=== PATIENT | female | born 1970 | race Caucasian/White ===

== ENCOUNTER 2020-07-17 09:30 | Emergency (ER) | payer BC ==
--- OUTSIDE RECORDS SUMMARY | 2020-07-17 09:41 | XMS REPORT | Clinical Summary ---
:1970 Author Organization [facility] Address [address] [place] [address] Care Team Providers Name Role Phone Asked, No Pcp Primary Care Provider Unavailable Allergies Active Allergy Reactions Severity Noted Date Comments Metoclopramide Hcl Unknown Reaction 03/12/2020 Oxcarbazepine Unknown Reaction 03/12/2020 Medications Medication Sig Dispensed Refills Start Date End Date Status promethazine Take 1 tablet 12 tablet 0 03/12/2020 03/19/2020 E xpired (PHENERGAN) 25 MG (25 mg total) by tablet mouth every 6 (six) hours as needed for nausea or vomiting for up to 7 days. Active Problems Not on file Encounters Date Type Specialty Care Team Description 03/12/2020 Emergency Emergency Medicine Faraz Harmon Mig raine without status migrainosus, no t intractable, un specified migraine type ( Primary Dx) 03/12/2020 Travel after 07/17/2019 Surgical History Surgery Date Site/Laterality Comments PALATE SURGERY ADENOIDECTOMY HYSTERECTOMY THORACOTOMY Medical History Medical History Date Comments Migraine Cancer (HCC) breast cancer High cholesterol Social History Tobacco Use Types Packs/Day Years Used Date Never Smoker Smokeless Tobacco: Never Used Alcohol Use Drinks/Week oz/Week Comments Never Alcohol Habits Answer Date Recorded How often do you have a drink containing alcohol? Never 03/12/2020 How many drinks containing alcohol do you have on a typical Not asked day when you are drinking? How often do you have six or more drinks on one occasion? No t asked Sex Assigned at Date Recorded Not on file Last Filed Vital Signs Vital Sign Reading Time Taken Comments Blood Pressure 123/83 03/12/2020 7:10 PM CDT Pulse 94 03/12/2020 7:10 PM CDT Temperature 36.5 C (97.7 F) 03/12/2020 7:10 PM CDT Respiratory Rate 20 03/12/2020 7:10 PM CDT Oxygen Saturation 97% 03/12/2020 7:10 PM CDT Inhaled Oxygen Concentration - - Weight - - Height 172.7 cm (5' 8") 03/12/2020 4:13 PM CDT Body Mass Index - - Plan of Treatment Not on file Procedures Procedure Name Priority Date/Time Associated Comments Diagnosis ESTIMATED GFR STAT 03/12/2020 5:09 Results fo r this PM CDT procedure are i n the results section. COMPREHENSIVE STAT 03/12/2020 5:09 Results fo r this METABOLIC PANEL PM CDT procedure ar e in the results section. HC COMPLETE BLD COUNT STAT 03/12/2020 5:09 Re sults for this W/AUTO DIFF PM CDT procedure are i n the results section. after 07/17/2019 Results Estimated GFR (03/12/2020 5:09 PM CDT) Estimated GFR 89 mL/min/1.73 [facility] Comment: m2 [place] Catergory Units Interpretation [facility] G1 >=90 Normal or high G2 60-89 Mildly decreased G3a 45-59 Mildly to moderately decreas ed G3b 30-44 Moderately to severely decre ased G4 15-29 Severely decreased G5 <15 Kidney failure The eGFR was calculated using the Chronic Kidney Disea se Epidemiology Collaboration (CKD-EPI) equation. Interpretation is based on recommendations of the National Kidney Foundation-Kidney Disease Outcomes Bryn lity Initiative (NKF-KDOQI) published in 2014. Specimen Performing Organization Address City/State/ZIP Code Phon e Number [facility] DEPARTMENT OF PATHOLOGY [address] [facility] [address] AND GENOMIC MEDICINE [facility] [id number] [facility] [place] [address] [facility] CBC with platelet and differential (03/12/2020 5:09 PM CDT) Pathologist Sig nature WBC 8.5 4.5 - 11.0 k/uL [facility] RBC 4.83 4.20 - 5.50 m/uL [facility] HGB 14.3 12.0 - 16.0 g/dL [facility] HCT 44.0 37.0 - 47.0 % [facility] MCV 91.1 82.0 - 100.[address] [facility] MCH 29.6 27.0 - 34.[address] [facility] MCHC 32.5 31.0 - 37.0 g/dL [facility] RDW - SD 42.9 37.0 - 55.[address] [facility] MPV 10.8 6.9 - 11.[address] [facility] Platelet count 274 150 - 400 K/uL [facility] Nucleated RBC 0.00 /[address] [facility] Neutrophils 60.9 39.0 - 69.0 % [facility] Lymphocytes 27.6 25.0 - 45.0 % [facility] Monocytes 9.4 0.0 - 10.0 % [facility] Eosinophils 1.3 0.0 - 5.0 % [facility] Basophils 0.4 0.0 - 1.0 % [facility] Immature granulocytes 0.4 0.0 - 1.0 % [facility] Specimen Blood Performing Organization Address City/State/ZIP Code Phon e Number [facility] DEPARTMENT OF PATHOLOGY [id number] [facility] X [address] AND GENOMIC MEDICINE [facility] [address] [facility] X [phone] [place] [address] Comprehensive metabolic panel (03/12/2020 5:09 PM CDT) Pathologist [facility] nature Sodium 135 135 - 148 mEq/L [facility] Potassium 3.4 (L) 3.5 - 5.0 mEq/L [facility] Chloride 94 (L) 98 - 112 mEq/L [facility] CO2 28 24 - 31 mEq/L [facility] Anion gap 13@ANIO 7 - 15 mEq/L [facility] BUN 18 6 - 20 mg/dL [facility] Creatinine 0.78 0.50 - 0.90 [facility]/dL [facility] Glucose 149 (H) 65 - 99 mg/dL [facility] Calcium 9.9 8.3 - 10.2 mg/dL [facility] Protein 8.1 6.3 - 8.3 g/dL [facility] Albumin 4.4 3.5 - 5.0 g/dL [facility] A/G ratio 1.2 0.7 - 3.8 [facility] Alkaline phosphatase 137 (H) 35 - 104 U/L [facility] AST 50 (H) 10 - 35 U/L [facility] ALT 53 (H) 5 - 50 U/L [facility] Total bilirubin 0.4 0.2 - 1.2 mg/dL [facility] Specimen Blood Performing Organization Address City/State/ZIP Code Phon e Number [facility] DEPARTMENT OF PATHOLOGY [address] [facility] [place] [address] AND GENOMIC MEDICINE [facility] [address] [facility] [address] HOSPITAL after 07/17/2019 Advance Directives For more information, please contact: [phone] Type Date Recorded Patient Robotics Technician Explanati on Advance Directives, Living Will 03/12/2020 5:30 PM and Medical Power of Food Cooking Machine Operator
--- OUTSIDE RECORDS SUMMARY | 2020-07-17 09:41 | XMS REPORT | Continuity of Care Document ---
:1970 Author Organization [facility] t Address [address] [place] [address] Care Team Providers Name Role Phone Asked, Pcp Primary Care Physician Unavailable Annette Harmon MD. Attending Clinician Payers Payer Name Policy Type Policy Effective Date Expiration Date Sour ce Number [id number] CHOICE [id number] 2019 [place] PPO/FEDERAL 00:00:00 [facility] EMPL [id number] 2019-Presen tPPO Problems This patient has no known problems. Allergies, Adverse Reactions, Alerts Allergy Allergy Status Severity Reaction(s) Onset Inactive Treating Comm ents Source Name Type Date Date Clinician Metoclop Propensi Active Unknown [place] ramide ty to Reaction 9-16 [facility] Hcl adverse 00:00: st reaction 00 s to drug Oxcarbaz Propensi Active Unknown [place] on epine ty to Reaction 03-12 [facility] adverse 00:00: st reaction 00 s to drug Reglan Allergy Active Moderate Anaphylaxis [place] [facility] to to severe da substanc [facility] SHELLFIS Allergy Active Moderate Anaphylaxis [place] to to severe da DERIVED substanc Medical e Group Trilepta Allergy Active Moderate Anaphylaxis [place] l to da substanc [facility] Social History Social Habit Start Date Stop Date Quantity Comments Source History [facility] Meth odist Alcohol Std Drinks History [facility] Alcohol Binge Sex Assigned At [facility] ethodist Tobacco use and 2020-03-12 2020-03-12 Never used [facility] ethodist exposure 00:00:00 00:00:00 Alcohol intake 2020-03-12 2020-03-[address] [facility] thodist 00:00:00 00:00:00 non-drinker (finding) History [facility] 2020-03-12 2020-03-12 1 [place] [facility] Alcohol Frequency 00:00:00 00:00:00 Smoking Status Start Date Stop Date Source Never smoker [place] Method[facility] t Medications Ordered Filled Start Stop Current Ordering Indication Dosage Frequency Signature Comments Components Source Medication Medication Date Date Medication? Clinician (SIG) Name Name promethazin 2020- No 25mg Q6H Take 1 Malachi ston e 03-12 tablet (25 [facility] (PHENERGAN) 00:00: 23:59 mg total) st 25 MG 00 :00 by mouth tablet every 6 (six) hours as needed for nausea or vomiting for up to 7 days. tizanidine tizanidine No 1 tizanidine [place] 2 mg tablet 2 mg tablet 5-18 2 mg d a Take 1 Take 1 00:00: tablet Medical tablet as tablet as 00 Take 1 Sameer up needed by needed by tablet as oral route. oral route. needed by oral route. aripiprazol aripiprazol No aripiprazo [place] e 2 mg e 2 mg le 2 mg da tablet Take tablet Take tablet Medical 1 tablet(s) 1 tablet(s) Take 1 Group every day every day tablet(s) by oral by oral every day route. route. by oral route. atenolol 25 atenolol 25 No atenolol [place] mg tablet mg tablet 25 mg da Take 1 Take 1 tablet Medical tablet tablet Take 1 Group every day every day tablet by oral by oral every day route. route. by oral route. atorvastati atorvastati No 1 Q1D atorvastat [place] n 10 mg n 10 mg in 10 mg da tablet Take tablet Take tablet Medical 1 tablet 1 tablet Take 1 Group every day every day tablet by oral by oral every day route. route. by oral route. dihydroergo dihydroergo No dihydroerg [place] tamine 0.5 tamine 0.5 otamine da mg/pump mg/pump 0.5 Medical act. (4 act. (4 mg/pump Group mg/mL) mg/mL) act. (4 nasal spray nasal spray mg/mL) Take 1 Take 1 nasal spray as spray as spray Take needed by needed by 1 spray as nasal nasal needed by route. route. nasal route. diltiazem diltiazem No 1capsul Q1D diltiazem [place] CD 120 mg CD 120 mg e(s) CD 120 mg da capsule,ext capsule,ext capsule,ex Medical ended ended tended Group release 24 release 24 release 24 hr Take 1 hr Take 1 hr Take 1 capsule capsule capsule every day every day every day by oral by oral by oral route. route. route. duloxetine duloxetine No duloxetine [place] 30 mg 30 mg 30 mg da capsule,del capsule,del capsule,de Medical ayed ayed layed Group release release release Take 1 Take 1 Take 1 capsule capsule capsule every day every day every day by oral by oral by oral route. route. route. duloxetine duloxetine No duloxetine [place] 60 mg 60 mg 60 mg da capsule,del capsule,del capsule,de Medical ayed ayed layed Group release release release Take 1 Take 1 Take 1 capsule capsule capsule every day every day every day by oral by oral by oral route. route. route. Emgality Emgality No Emgality [facility] Pen 120 Pen 120 Pen 120 da mg/mL mg/mL mg/mL Medical subcutaneou subcutaneou subcutaneo Group s pen s pen us pen injector injector injector Femara Femara No Femara [facility] gabapentin gabapentin No 1capsul TID gabapentin [place] 100 mg 100 mg e(s) 100 mg da capsule capsule capsule Medica l Take 1 Take 1 Take 1 Group capsule 3 capsule 3 capsule 3 times a day times a day times a by oral by oral day by route. route. oral route. hydrochloro hydrochloro No hydrochlor [facility] thiazide 25 thiazide 25 othiazide da mg tablet mg tablet 25 mg Medi frank Take 1 Take 1 tablet Group tablet tablet Take 1 every day every day tablet by oral by oral every day route. route. by oral route. hydroxychlo hydroxychlo No hydroxychl [place] roquine 200 roquine 200 oroquine da mg tablet 1 mg tablet 1 200 mg Medical tab po qd tab po qd tablet 1 G roup tab po qd Januvia 100 Januvia 100 No Januvia [place] mg tablet mg tablet 100 mg da Take 1 Take 1 tablet Medical tablet tablet Take 1 Group every day every day tablet by oral by oral every day route. route. by oral route. letrozole letrozole No letrozole [place] 2.5 mg 2.5 mg 2.5 mg da tablet 1 tablet 1 tablet 1 Med ical tab po qd tab po qd tab po qd Group omeprazole omeprazole No 1capsul Q1D omeprazole [place] 40 mg 40 mg e(s) 40 mg da capsule,del capsule,del capsule,de Medical ayed ayed layed Group release release release Take 1 Take 1 Take 1 capsule capsule capsule every day every day every day by oral by oral by oral route. route. route. Immunizations Ordered Immunization Filled Immunization Date Status Commen ts Source Name Name influenza, influenza, 2020-03-19 Completed [facility] inject[facility], injectable, 00:00:00 [facility] p quadrivalent quadrivalent influenza, influenza, 2019-03-30 Completed [facility] injectable, injectable, 00:00:00 [facility] p quadrivalent quadrivalent Tdap Tdap 2019-03-01 Completed [facility] 00:00:00 [facility] Vital Signs Vital Name Observation Time Observation Value Comments Source Height 2020-05-30 00:00:00 68 [in_i] [facility] BMI (Body Mass 2020-05-30 00:00:00 37[facility]4 [facility] Body Weight 2020-05-30 00:00:00 3936 [oz_av] [facility] Height 2020-05-16 00:00:00 68 [in_i] [facility] BMI (Body Mass 2020-05-16 00:00:00 39.4 kg[facility] Body Weight 2020-05-16 00:00:00 4144 [oz_av] [facility] BP Diastolic 2020-04-02 00:00:00 89 mm[Hg] [facility] Height 2020-04-02 00:00:00 68 [in_i] [facility] BMI (Body Mass 2020-04-02 00:00:00 39.4 kg/m2 [facility] Medical Index) Group BP Systolic 2020-04-02 00:00:00 119 mm[Hg] [facility] Body Weight 2020-04-02 00:00:00 4144 [oz_av] [facility] Height 2020-03-05 00:00:00 68 [in_i] [facility] BMI (Body Mass 2020-03-05 00:00:00 38.6 kg/m2 [facility] retirement officer Medical Index) Group Body Weight 2020-03-05 00:00:00 4064 [oz_av] [facility] BP Diastolic 2019-12-24 00:00:00 90 mm[Hg] [facility] Height 2019-12-24 00:00:00 68 [in_i] [facility] BMI (Body Mass 2019-12-24 00:00:00 38.6 kg/m2 [facility] Index) Group BP Systolic 2019-12-24 00:00:00 126 mm[Hg] [facility] Body Weight 2019-12-24 00:00:00 4064 [oz_av] [facility] BP Diastolic 2019-08-06 00:00:00 88 mm[Hg] [facility] Height 2019-08-06 00:00:00 68 [in_i] [facility] BMI (Body Mass 2019-08-06 00:00:00 38.8 kg/m2 [facility] retirement officer Medical Index) Group BP Systolic 2019-08-06 00:00:00 128 mm[Hg] [facility] Body Weight 2019-08-06 00:00:00 4080 [oz_av] [facility] Systolic blood 2020-03-12 19:10:00 123 mm[Hg] Umairto n [facility] pressure Diastolic blood 2020-03-12 19:10:00 83 mm[Hg] Umairt on [facility] pressure Heart rate 2020-03-12 19:10:00 94 /min Joaquin Steel Body temperature 2020-03-12 19:10:00 36.5 Cristina Umair rodriguez [facility] Respiratory rate 2020-03-12 19:10:00 20 /min U[facility] Steel Oxygen saturation in 2020-03-12 19:10:00 97 /min Joaquin Steel Arterial blood by Pulse oximetry Body height 2020-03-12 16:13:00 172.7 cm Joaquin Steel Procedures Procedure Date / Time Performing Clinician Source Performed HC COMPLETE BLD COUNT 2020-03-12 17:09:00 Jennifer Harmon W/AUTO DIFF COMPREHENSIVE METABOLIC 2020-03-12 17:09:00 Jennifer Harmonton [facility] PANEL ESTIMATED GFR 2020-03-12 17:09:00 Jennifer Harmon [facility] Colonoscopy 2019-07-11 00:00:00 [facility] Hysterectomy 2018-05-29 00:00:00 [facility] Breast Surgery 2017-07-28 00:00:00 [facility] Plan of Care Planned Activity Planned Date Details Comments Source Instructions [facility] Encounters Start End Encounter Admission Attending Care Care Encounter Source Date/Time Date/Time Type Type Clinicians Facility Department ID 2020-05-30 2020-05-30 Moira [facility] [place] - [id number] [facility] 00:00:00 00:00:00 Rox Connors, Medical Medical FURNACE INSTALLER: [address] [facility] [address], [place] [address] , Ph. 2020-05-16 2020-05-16 Moira [facility] [place] - [id number] [facility] 00:00:00 00:00:00 Rox Connors Medical Medical FURNACE INSTALLER: [address] [facility] [address] [facility] [address], [place] [address] , Ph. 2020-04-02 2020-04-02 Nurys [facility] [place] - [id number] [facility] 00:00:00 00:00:00 Discovery israel Sanches FURNACE INSTALLER: [address] [place] [address], [place] [address] , Ph. 2020-03-12 2020-03-12 Emergency [facility] [id number] [place] 00:00:00 00:00:00 JENNIFER Simmons6 [facility] 2020-03-05 2020-03-05 [facility] [place] - [id number] [facility] 00:00:00 00:00:00 Discovery israel Sanches FURNACE INSTALLER: [address] [place] [address], [place] [address] , Ph. 2019-12-24 2019-12-24 [facility] [place] - [id number] [facility] 00:00:00 00:00:00 Discovery israel Sanches FURNACE INSTALLER: [address] [place] [address], [place] [address] , Ph. 2019-11-12 2019-11-12 [facility] [place] - [id number] [facility] 00:00:00 00:00:00 Discovery israel Sanches FURNACE INSTALLER: [address] [place] [address], [facility] [address] , Ph. 2019-10-29 2019-10-29 Moira [facility] [place] - [id number] [facility] 00:00:00 00:00:00 Rox Connors [facility] Medical FURNACE INSTALLER: [address] [place] [address], [place] [address] , Ph. 2019-08-06 2019-08-06 Nur[facility] [place] - [id number] [facility] 00:00:00 00:00:00 Discovery israel Sanches FURNACE INSTALLER: [address] [place] [address], [facility] [address] , Ph. Results Test Description Test Time Test Comments Results Result Comments Source rapid SARS CoV + SARS CoV 2 Ag, QL IA, respiratory specimen 2020-05-16 16:13:34 Test Item Value Reference Range Interpretation Comme nts SARS-CoV - 2 (test code = SARS-CoV - 2) [facility] Ag [Presence] in Respiratory specimen by Rapid [id number] 16:13:00 Test Item Value Reference Range Interpretation Comments SARS-CoV - 2 (test code = SARS-CoV - positive 2) [facility] W Auto Differential panel - [id number] 08:00:00 Test Item Value Reference Range Interpretation Comments white blood count (test code = 6.6 K/uL 4.0-11.5 white blood count) red blood count (test code = red 4.81 M/uL 3.80-5.20 blood count) hemoglobin (test code = 13.9 g/dL 10.5-15.7 hemoglobin) hematocrit (test code = 43.9 % 34.0-50.0 hematocrit) MCV [Entitic volume] (test code = 91.3 fL 86-100 26634-7) mean corpuscular hemoglobin (test 28.9 pg 26.2-33.4 code = mean corpuscular hemoglobin) mean corpuscular HGB conc (test 31.7 g/dL 30-34 code = mean corpuscular HGB conc) red cell distribution width (test 13.5 % 12.0-15.5 code = red cell distribution width) platelet count (test code = 250 K/uL 165-450 platelet count) mean platelet volume (test code = 11.0 fL 9.4-12.6 mean platelet volume) Segmented neutrophils/100 53.2 % 44.4-80.1 leukocytes in Blood (test code = 50962-8) Immature granulocytes [#/volume] 0.0 K/uL 0.0-0.03 in Blood (test code = 64710-6) lymphocyte% (test code = 35.1 % 10.0-50.0 lymphocyte%) mono % (test code = mono %) 9.4 % 3.6-12.0 eos % (test code = eos %) 1.5 % 0.0-5.4 Basophils/100 leukocytes in 0.5 % 0.1-1.2 Unspecified specimen (test code = 20563-4) Band form neutrophils [#/volume] 3.53 K/uL 1.56-6.13 in Blood (test code = 93852-2) Lymphocytes [#/volume] in 2.3 K/uL 1.18-3.74 Unspecified specimen by Automated count (test code = 29443-4) mono # (test code = mono #) 0.62 K/uL 0.24-0.86 eos # (test code = eos #) 0.10 K/uL 0.04-0.36 basophil # (test code = basophil 0.03 K/uL 0.01-0.08 #) NRBC% (test code = NRBC%) 0 /100 WBC 0-0.2 NRBC# (test code = NRBC#) 0 K/uL [facility], method unspecified - [id number] 08:00:00NeutrophilsBandLymphocyteAtypical LymphMonocyteEosinophilBasophilMetamyelocyteMyelocytePromyelocyteNucleated Red Blood CellPlatelet EstimatePlatelet MorphologyHypochromasiaGiant Platelets [facility] 2000 panel - Serum or Plasma 2020-05-08 08:00:00 Test Item Value Reference Range Interpretation Comments glucose (test code = glucose) 214 mg/dL 74-106 H Urea nitrogen [Mass/volume] in 12 mg/dL 6-20 Serum or Plasma (test code = 3094-0) osmolality calculated,serum (test 275 mOsm/kg 280-300 L code = osmolality calculated,serum) creatinine (test code = 0.8 mg/dL 0.50-0.90 creatinine) glomerular filtration rate (test >60.00 code = glomerular filtration rate) Urea nitrogen/Creatinine [Mass 15.0 12-20 Ratio] in Serum or Plasma (test code = 3097-3) sodium level (test code = sodium 134 mmol/L 135-145 L level) Potassium [Moles/volume] in Body 4.0 mmol/L 3.5-5.2 fluid (test code = 2821-7) chloride level (test code = 99 mmol/L 98-108 chloride level) CO2 (test code = CO2) 23 mmol/L 21-32 anion gap (test code = anion gap) 16.0 mEq/L 12-20 calcium level (test code = 9.6 mg/dL 8.6-10.0 calcium level) total protein (test code = total 7.3 g/dL 6.6-8.7 protein) albumin (test code = albumin) 4.1 g/dL 3.5-5.2 globulin (test code = globulin) 3.2 gm/dL A/G ratio (test code = A/G ratio) 1.3 >1.0 bilirubin,total (test code = 0.4 mg/dL 0.0-1.2 bilirubin,total) AST/SGOT (test code = AST/SGOT) 37 U/L 15-32 H Alanine aminotransferase 46 U/L 0-33 H [Enzymatic activity/volume] in Serum or Plasma (test code = 1742-6) Alkaline phosphatase [Enzymatic 122 U/L 35-105 H activity/volume] in Serum or Plasma (test code = 6768-6) [facility] W Auto Differential panel - [id number] 08:00:00 Test Item Value Reference Range Interpretation Comments white blood count (test code = 6.6 K/uL 4.0-11.5 white blood count) red blood count (test code = red 4.81 M/uL 3.80-5.20 blood count) hemoglobin (test code = 13.9 g/dL 10.5-15.7 hemoglobin) hematocrit (test code = 43.9 % 34.0-50.0 hematocrit) MCV [Entitic volume] (test code = 91.3 fL 86-100 60248-4) mean corpuscular hemoglobin (test 28.9 pg 26.2-33.4 code = mean corpuscular hemoglobin) mean corpuscular HGB conc (test 31.7 g/dL 30-34 code = mean corpuscular HGB conc) red cell distribution width (test 13.5 % 12.0-15.5 code = red cell distribution width) platelet count (test code = 250 K/uL 165-450 platelet count) mean platelet volume (test code = 11.0 fL 9.4-12.6 mean platelet volume) Segmented neutrophils/100 53.2 % 44.4-80.1 leukocytes in Blood (test code = 04843-8) Immature granulocytes [#/volume] 0.0 K/uL 0.0-0.03 in Blood (test code = 15184-1) lymphocyte% (test code = 35.1 % 10.0-50.0 lymphocyte%) mono % (test code = mono %) 9.4 % 3.6-12.0 eos % (test code = eos %) 1.5 % 0.0-5.4 Basophils/100 leukocytes in 0.5 % 0.1-1.2 Unspecified specimen (test code = 73706-4) Band form neutrophils [#/volume] 3.53 K/uL 1.56-6.13 in Blood (test code = 91346-0) Lymphocytes [#/volume] in 2.3 K/uL 1.18-3.74 Unspecified specimen by Automated count (test code = 68891-4) mono # (test code = mono #) 0.62 K/uL 0.24-0.86 eos # (test code = eos #) 0.10 K/uL 0.04-0.36 basophil # (test code = basophil 0.03 K/uL 0.01-0.08 #) NRBC% (test code = NRBC%) 0 /100 WBC 0-0.2 NRBC# (test code = NRBC#) 0 K/uL [facility], method unspecified - [id number] 08:00:00NeutrophilsBandLymphocyteAtypical LymphMonocyteEosinophilBasophilMetamyelocyteMyelocytePromyelocyteNucleated Red Blood CellPlatelet EstimatePlatelet MorphologyHypochromasiaGiant Platelets [facility] 2000 panel - Serum or Plasma 2020-05-08 08:00:00 Test Item Value Reference Range Interpretation Comments glucose (test code = glucose) 214 mg/dL 74-106 H Urea nitrogen [Mass/volume] in 12 mg/dL 6-20 Serum or Plasma (test code = 3094-0) osmolality calculated,serum (test 275 mOsm/kg 280-300 L code = osmolality calculated,serum) creatinine (test code = 0.8 mg/dL 0.50-0.90 creatinine) glomerular filtration rate (test >60.00 code = glomerular filtration rate) Urea nitrogen/Creatinine [Mass 15.0 12-20 Ratio] in Serum or Plasma (test code = 3097-3) sodium level (test code = sodium 134 mmol/L 135-145 L level) Potassium [Moles/volume] in Body 4.0 mmol/L 3.5-5.2 fluid (test code = 2821-7) chloride level (test code = 99 mmol/L 98-108 chloride level) CO2 (test code = CO2) 23 mmol/L 21-32 anion gap (test code = anion gap) 16.0 mEq/L 12-20 calcium level (test code = 9.6 mg/dL 8.6-10.0 calcium level) total protein (test code = total 7.3 g/dL 6.6-8.7 protein) albumin (test code = albumin) 4.1 g/dL 3.5-5.2 globulin (test code = globulin) 3.2 gm/dL A/G ratio (test code = A/G ratio) 1.3 >1.0 bilirubin,total (test code = 0.4 mg/dL 0.0-1.2 bilirubin,total) AST/SGOT (test code = AST/SGOT) 37 U/L 15-32 H Alanine aminotransferase 46 U/L 0-33 H [Enzymatic activity/volume] in Serum or Plasma (test code = 1742-6) Alkaline phosphatase [Enzymatic 122 U/L 35-105 H activity/volume] in Serum or Plasma (test code = 6768-6) [facility] [id number] 17:41:35 Test Item Value Reference Range Interpretation Comments Sodium (test code = 2951-2) 135 135- 148 mEq/L Potassium (test code = 2823-3) 3.4 3.5- 5.0 mEq/L L Chloride (test code = 2075-0) 94 98- 112 mEq/L L CO2 (test code = 2027-9) 28 24- 31 mEq/L Anion gap (test code = 22782-7) 13@ANIO 7- 15 mEq/L BUN (test code = 3094-0) 18 mg/dL 6-20 Creatinine (test code = 2160-0) 0.78 mg/dL 0.5-0.9 Glucose (test code = 2345-7) 149 mg/dL 65-99 H Calcium (test code = 67306-6) 9.9 mg/dL 8.3-10.2 Protein (test code = 2885-2) 8.1 g/dL 6.3-8.3 Albumin (test code = 1751-7) 4.4 g/dL 3.5-5 A/G ratio (test code = 1759-0) 1.2 0.7-3.8 Alkaline phosphatase (test code = 137 U/L 35-104 H 6768-6) AST (test code = 1920-8) 50 U/L 10-35 H ALT (test code = 1742-6) 53 U/L 5-50 H Total bilirubin (test code = 0.4 mg/dL 0.2-1.2 1974-07) Lab Interpretation (test code = Abnormal 23655-9) [facility] [id number] 17:41:35 Test Item Value Reference Range Interpretation Comments Estimated GFR (test 89 mL/min/1.73 m2 [facility] Units code = 5488) InterpretationG 1 >=90 Normal or highG2 60-89 Mildly [id number] 45-59 Mildly to mode rately [id number] 30-44 Moderately to severely decreasedG4 15-29 Severely decre asedG5 <15 Kidn ey failureThe eGFR was calculated marvin g the Chronic Kidney Disease Epidemiology Co llaboration (CKD-EPI) equat ion. Interpretation is based on recommendations of the National Kidney Foundation-Kidn ey Disease Outcomes Qualit y Initiative (NKF-KDOQI) pub lished in 2014. [facility] MethodistCBC with platelet and [id number] 17:26:05 Test Item Value Reference Range Interpretation Comments WBC (test code = 27481-6) 8.5 4.5- 11.0 k/uL RBC (test code = 92922-2) 4.83 m/uL 4.2-5.5 HGB (test code = 718-7) 14.3 g/dL 12-16 HCT (test code = 4544-3) 44.0 % 37-47 MCV (test code = 787-2) 91.1 fL 82-100 MCH (test code = 785-6) 29.6 pg 27-34 MCHC (test code = 786-4) 32.5 g/dL 31-37 RDW - SD (test code = 27853-3) 42.9 fL 37-55 MPV (test code = 92730-3) 10.8 fL 6.9-11 Platelet count (test code = 274 K/uL 150-400 28650-0) Nucleated RBC (test code = 97714-3) 0.00 /100 WBC Neutrophils (test code = 98247-0) 60.9 % 39-69 Lymphocytes (test code = 82013-6) 27.6 % 25-45 Monocytes (test code = 25187-5) 9.4 % 0-10 Eosinophils (test code = 10400-7) 1.3 % 0-5 Basophils (test code = 92763-1) 0.4 % 0-1 Immature granulocytes (test code = 0.4 % 0-1 89986-1) [facility] Auto Differential panel - [id number] 09:26:00 Test Item Value Reference Range Interpretation Comments white blood count (test code = 5.5 K/uL 4.0-11.5 white blood count) red blood count (test code = red 4.64 M/uL 3.80-5.20 blood count) hemoglobin (test code = 13.7 g/dL 10.5-15.7 hemoglobin) hematocrit (test code = 42.6 % 34.0-50.0 hematocrit) MCV [Entitic volume] (test code = 91.8 fL 86-100 13745-6) mean corpuscular hemoglobin (test 29.5 pg 26.2-33.4 code = mean corpuscular hemoglobin) mean corpuscular HGB conc (test 32.2 g/dL 30-34 code = mean corpuscular HGB conc) red cell distribution width (test 12.9 % 12.0-15.5 code = red cell distribution width) platelet count (test code = 222 K/uL 165-450 platelet count) mean platelet volume (test code = 9.9 fL 9.4-12.6 mean platelet volume) Segmented neutrophils/100 55.0 % 44.4-80.1 leukocytes in Blood (test code = 22579-0) Immature granulocytes [#/volume] 0.0 K/uL 0.0-0.03 in Blood (test code = 38953-6) lymphocyte% (test code = 32.7 % 10.0-50.0 lymphocyte%) mono % (test code = mono %) 9.9 % 3.6-12.0 eos % (test code = eos %) 1.6 % 0.0-5.4 Basophils/100 leukocytes in 0.4 % 0.1-1.2 Unspecified specimen (test code = 33197-2) Band form neutrophils [#/volume] 3.04 K/uL 1.56-6.13 in Blood (test code = 04840-6) Lymphocytes [#/volume] in 1.8 K/uL 1.18-3.74 Unspecified specimen by Automated count (test code = 18938-4) mono # (test code = mono #) 0.55 K/uL 0.24-0.86 eos # (test code = eos #) 0.09 K/uL 0.04-0.36 basophil # (test code = basophil 0.02 K/uL 0.01-0.08 #) NRBC% (test code = NRBC%) 0 /100 WBC 0-0.2 NRBC# (test code = NRBC#) 0 K/uL [facility], method unspecified - [id number] 09:26:00NeutrophilsBandLymphocyteAtypical LymphMonocyteEosinophilBasophilMetamyelocytePlatelet EstimatePlatelet MorphologyHypochromasiaAnisocytosisRouleauDifferential comment-[facility] RegionBasic metabolic 2000 panel - Serum or [id number] 09:26:00 Test Item Value Reference Range Interpretation Comments Glucose [Mass/volume] in Serum or 107 mg/dL 74-106 H Plasma (test code = 2345-7) Urea nitrogen [Mass/volume] in 12 mg/dL 6-20 Serum or Plasma (test code = 3094-0) osmolality calculated,serum (test 280 mOsm/kg 280-300 code = osmolality calculated,serum) creatinine (test code = 0.7 mg/dL 0.50-0.90 creatinine) glomerular filtration rate (test >60.00 code = glomerular filtration rate) Urea nitrogen/Creatinine [Mass 17.1 12-20 Ratio] in Serum or Plasma (test code = 3097-3) sodium level (test code = sodium 140 mmol/L 135-145 level) potassium level (test code = 4.0 mmol/L 3.5-5.2 potassium level) chloride level (test code = 103 mmol/L 98-108 chloride level) CO2 (test code = CO2) 28 mmol/L 21-32 anion gap (test code = anion gap) 13.0 mEq/L 12-20 calcium level (test code = 9.5 mg/dL 8.6-10.0 calcium level) [facility] HealthTroponisylvia I.cardiac [Mass/volume] in [id number] 09:26:00 Test Item Value Reference Range Interpretation Comments cardiac troponin I (test code = cardiac <0.30 0.0-0.5 troponin I) [facility] W Auto Differential panel - [id number] 09:26:00 Test Item Value Reference Range Interpretation Comments white blood count (test code = 5.5 K/uL 4.0-11.5 white blood count) red blood count (test code = red 4.64 M/uL 3.80-5.20 blood count) hemoglobin (test code = 13.7 g/dL 10.5-15.7 hemoglobin) hematocrit (test code = 42.6 % 34.0-50.0 hematocrit) MCV [Entitic volume] (test code = 91.8 fL 86-100 14252-8) mean corpuscular hemoglobin (test 29.5 pg 26.2-33.4 code = mean corpuscular hemoglobin) mean corpuscular HGB conc (test 32.2 g/dL 30-34 code = mean corpuscular HGB conc) red cell distribution width (test 12.9 % 12.0-15.5 code = red cell distribution width) platelet count (test code = 222 K/uL 165-450 platelet count) mean platelet volume (test code = 9.9 fL 9.4-12.6 mean platelet volume) Segmented neutrophils/100 55.0 % 44.4-80.1 leukocytes in Blood (test code = 61054-3) Immature granulocytes [#/volume] 0.0 K/uL 0.0-0.03 in Blood (test code = 48370-2) lymphocyte% (test code = 32.7 % 10.0-50.0 lymphocyte%) mono % (test code = mono %) 9.9 % 3.6-12.0 eos % (test code = eos %) 1.6 % 0.0-5.4 Basophils/100 leukocytes in 0.4 % 0.1-1.2 Unspecified specimen (test code = 77696-7) Band form neutrophils [#/volume] 3.04 K/uL 1.56-6.13 in Blood (test code = 18867-0) Lymphocytes [#/volume] in 1.8 K/uL 1.18-3.74 Unspecified specimen by Automated count (test code = 65010-5) mono # (test code = mono #) 0.55 K/uL 0.24-0.86 eos # (test code = eos #) 0.09 K/uL 0.04-0.36 basophil # (test code = basophil 0.02 K/uL 0.01-0.08 #) NRBC% (test code = NRBC%) 0 /100 WBC 0-0.2 NRBC# (test code = NRBC#) 0 K/uL [facility], method unspecified - [id number] 09:26:00NeutrophilsBandLymphocyteAtypical LymphMonocyteEosinophilBasophilMetamyelocytePlatelet EstimatePlatelet MorphologyHypochromasiaAnisocytosisRouleauDifferential comment-[facility]Basic metabolic 2000 panel - Serum or [id number] 09:26:00 Test Item Value Reference Range Interpretation Comments Glucose [Mass/volume] in Serum or 107 mg/dL 74-106 H Plasma (test code = 2345-7) Urea nitrogen [Mass/volume] in 12 mg/dL 6-20 Serum or Plasma (test code = 3094-0) osmolality calculated,serum (test 280 mOsm/kg 280-300 code = osmolality calculated,serum) creatinine (test code = 0.7 mg/dL 0.50-0.90 creatinine) glomerular filtration rate (test >60.00 code = glomerular filtration rate) Urea nitrogen/Creatinine [Mass 17.1 12-20 Ratio] in Serum or Plasma (test code = 3097-3) sodium level (test code = sodium 140 mmol/L 135-145 level) potassium level (test code = 4.0 mmol/L 3.5-5.2 potassium level) chloride level (test code = 103 mmol/L 98-108 chloride level) CO2 (test code = CO2) 28 mmol/L 21-32 anion gap (test code = anion gap) 13.0 mEq/L 12-20 calcium level (test code = 9.5 mg/dL 8.6-10.0 calcium level) [facility] I.cardiac [Mass/volume] in [id number] 09:26:00 Test Item Value Reference Range Interpretation Comments cardiac troponin I (test code = cardiac <0.30 0.0-0.5 troponin I) [facility] W Auto Differential panel - [id number] 07:24:00 Test Item Value Reference Range Interpretation Comments white blood count (test code = 8.3 K/uL 4.0-11.5 white blood count) red blood count (test code = red 4.33 M/uL 3.80-5.20 blood count) hemoglobin (test code = 12.7 g/dL 10.5-15.7 hemoglobin) hematocrit (test code = 40.1 % 34.0-50.0 hematocrit) MCV [Entitic volume] (test code = 92.6 fL 86-100 59515-8) mean corpuscular hemoglobin (test 29.3 pg 26.2-33.4 code = mean corpuscular hemoglobin) mean corpuscular HGB conc (test 31.7 g/dL 30-34 code = mean corpuscular HGB conc) red cell distribution width (test 13.7 % 12.0-15.5 code = red cell distribution width) platelet count (test code = 239 K/uL 165-450 platelet count) mean platelet volume (test code = 10.2 fL 9.4-12.6 mean platelet volume) Segmented neutrophils/100 56.1 % 44.4-80.1 leukocytes in Blood (test code = 99205-5) Immature granulocytes [#/volume] 0.0 K/uL 0.0-0.03 in Blood (test code = 35434-6) lymphocyte% (test code = 31.8 % 10.0-50.0 lymphocyte%) mono % (test code = mono %) 10.2 % 3.6-12.0 eos % (test code = eos %) 1.1 % 0.0-5.4 Basophils/100 leukocytes in 0.4 % 0.1-1.2 Unspecified specimen (test code = 27854-0) Band form neutrophils [#/volume] 4.67 K/uL 1.56-6.13 in Blood (test code = 95393-2) Lymphocytes [#/volume] in 2.6 K/uL 1.18-3.74 Unspecified specimen by Automated count (test code = 63222-3) mono # (test code = mono #) 0.85 K/uL 0.24-0.86 eos # (test code = eos #) 0.09 K/uL 0.04-0.36 basophil # (test code = basophil 0.03 K/uL 0.01-0.08 #) NRBC% (test code = NRBC%) 0 /100 WBC 0-0.2 NRBC# (test code = NRBC#) 0 K/uL [facility], method unspecified - [id number] 07:24:00NeutrophilsBandLymphocyteMonocyteEosinophilBasophilPlatelet Estimate [facility]Com[facility] 2000 panel - Serum or Plasma 2019-12-04 07:24:00 Test Item Value Reference Range Interpretation Comments glucose (test code = glucose) 113 mg/dL 74-106 H Urea nitrogen [Mass/volume] in 18 mg/dL 6-20 Serum or Plasma (test code = 3094-0) osmolality calculated,serum (test 284 mOsm/kg 280-300 code = osmolality calculated,serum) creatinine (test code = 0.7 mg/dL 0.50-0.90 creatinine) glomerular filtration rate (test >60.00 code = glomerular filtration rate) Urea nitrogen/Creatinine [Mass 25.7 12-20 H Ratio] in Serum or Plasma (test code = 3097-3) sodium level (test code = sodium 141 mmol/L 135-145 level) Potassium [Moles/volume] in Body 3.8 mmol/L 3.5-5.2 fluid (test code = 2821-7) chloride level (test code = 104 mmol/L 98-108 chloride level) CO2 (test code = CO2) 26 mmol/L 21-32 anion gap (test code = anion gap) 14.8 mEq/L 12-20 calcium level (test code = 9.4 mg/dL 8.6-10.0 calcium level) total protein (test code = total 7.1 g/dL 6.6-8.7 protein) albumin (test code = albumin) 3.9 g/dL 3.5-5.2 globulin (test code = globulin) 3.2 gm/dL A/G ratio (test code = A/G ratio) 1.2 >1.0 bilirubin,total (test code = 0.4 mg/dL 0.0-1.2 bilirubin,total) AST/SGOT (test code = AST/SGOT) 27 U/L 15-32 Alanine aminotransferase 36 U/L 0-33 H [Enzymatic activity/volume] in Serum or Plasma (test code = 1742-6) Alkaline phosphatase [Enzymatic 114 U/L 35-105 H activity/volume] in Serum or Plasma (test code = 6768-6) [facility] [Enzymatic activity/volume] in Serum or Plasma 2019-12-04 07:24:00 Test Item Value Reference Range Interpretation Comments lipase (test code = lipase) 34 U/L 13-60 [facility] W Auto Differential panel - [id number] 07:37:00 Test Item Value Reference Range Interpretation Comments white blood count (test code = 5.5 K/uL 4.0-11.5 white blood count) red blood count (test code = red 4.71 M/uL 3.80-5.20 blood count) hemoglobin (test code = 13.6 g/dL 10.5-15.7 hemoglobin) hematocrit (test code = 43.3 % 34.0-50.0 hematocrit) MCV [Entitic volume] (test code = 91.9 fL 86-100 99369-3) mean corpuscular hemoglobin (test 28.9 pg 26.2-33.4 code = mean corpuscular hemoglobin) mean corpuscular HGB conc (test 31.4 g/dL 30-34 code = mean corpuscular HGB conc) red cell distribution width (test 13.7 % 12.0-15.5 code = red cell distribution width) platelet count (test code = 251 K/uL 165-450 platelet count) mean platelet volume (test code = 10.0 fL 9.4-12.6 mean platelet volume) Segmented neutrophils/100 61.1 % 44.4-80.1 leukocytes in Blood (test code = 39201-3) Immature granulocytes [#/volume] 0.0 K/uL 0.0-0.03 in Blood (test code = 02724-6) lymphocyte% (test code = 29.0 % 10.0-50.0 lymphocyte%) mono % (test code = mono %) 6.8 % 3.6-12.0 eos % (test code = eos %) 2.2 % 0.0-5.4 Basophils/100 leukocytes in 0.7 % 0.1-1.2 Unspecified specimen (test code = 04077-9) Band form neutrophils [#/volume] 3.35 K/uL 1.56-6.13 in Blood (test code = 63312-3) Lymphocytes [#/volume] in 1.6 K/uL 1.18-3.74 Unspecified specimen by Automated count (test code = 24790-3) mono # (test code = mono #) 0.37 K/uL 0.24-0.86 eos # (test code = eos #) 0.12 K/uL 0.04-0.36 basophil # (test code = basophil 0.04 K/uL 0.01-0.08 #) NRBC% (test code = NRBC%) 0 /100 WBC 0-0.2 NRBC# (test code = NRBC#) 0 K/uL [facility] 2000 panel - Serum or Plasma 2019-11-25 07:37:00 Test Item Value Reference Range Interpretation Comments glucose (test code = glucose) 162 mg/dL 74-106 H Urea nitrogen [Mass/volume] in 18 mg/dL 6-20 Serum or Plasma (test code = 3094-0) osmolality calculated,serum (test 279 mOsm/kg 280-300 L code = osmolality calculated,serum) creatinine (test code = 0.7 mg/dL 0.50-0.90 creatinine) glomerular filtration rate (test >60.00 code = glomerular filtration rate) Urea nitrogen/Creatinine [Mass 25.7 12-20 H Ratio] in Serum or Plasma (test code = 3097-3) sodium level (test code = sodium 137 mmol/L 135-145 level) Potassium [Moles/volume] in Body 4.0 mmol/L 3.5-5.2 fluid (test code = 2821-7) chloride level (test code = 99 mmol/L 98-108 chloride level) CO2 (test code = CO2) 28 mmol/L 21-32 anion gap (test code = anion gap) 14.0 mEq/L 12-20 calcium level (test code = 9.9 mg/dL 8.6-10.0 calcium level) total protein (test code = total 7.5 g/dL 6.6-8.7 protein) albumin (test code = albumin) 4.2 g/dL 3.5-5.2 globulin (test code = globulin) 3.3 gm/dL A/G ratio (test code = A/G ratio) 1.3 >1.0 bilirubin,total (test code = 0.4 mg/dL 0.0-1.2 bilirubin,total) AST/SGOT (test code = AST/SGOT) 31 U/L 15-32 Alanine aminotransferase 42 U/L 0-33 H [Enzymatic activity/volume] in Serum or Plasma (test code = 1742-6) Alkaline phosphatase [Enzymatic 119 U/L 35-105 H activity/volume] in Serum or Plasma (test code = 6768-6) [facility]
[2020-07-17] MEDS ORDERED: LORazepam 2 MG/ML VIAL ONE (13:10)
[2020-07-17] MEDS ORDERED: DIPHENHYDRAMINE 50 MG/ML VIAL ONE (13:10)
[2020-07-17] MEDS ORDERED: dexAMETHasone 10 MG/ML VIAL ONE (13:10)
[2020-07-17] MEDS ORDERED: KETOROLAC 30 MG/ML INJ ONE (13:11)
[2020-07-17] MEDS ORDERED: PROMETHAZINE INJ 25 MG/ML AMP ONE (14:26)
[2020-07-17] MEDS ORDERED: SUMATRIPTAN SUCC 6MG/0.5ML VIAL SQ ONE (14:26)
--- NOTE | 2020-07-17 14:58 | ER ---
Nurse's Notes [facility] Name: Connie Ellsworth Age: 49 yrs Sex: Female : 1970 Arrival Date: 07/17/2020 Time: 09:35 Bed 26 [facility] MD: Diagnosis: Migraine, unspecified, intractable Presentation: 07/17 10:01 Chief complaint: Patient states: "migraine" that began last night. Coronavirus screen: ss Client denies travel out of the [place] in the last 14 days. Ebola Screen: Patient denies exposure to infectious person. Patient denies travel to an Ebola-affected area in the 21 days before illness onset. Initial Sepsis Screen: Does the patient meet any 2 criteria? No. Patient's initial sepsis screen is negative. Does the patient have a suspected source of infection? No. Patient's initial sepsis screen is negative. Risk Assessment: Do you want to hurt yourself or someone else? Patient reports no desire to harm self or others. Onset of symptoms was July 16, 2020. 10:01 Method Of Arrival: Ambulatory ss 10:01 Acuity: JAIME 3 ss Historical: - Allergies: 10:02 Trileptal; ss 10:02 Reglan; ss - Home Meds: 11:48 atorvastatin oral oral [Active]; Cymbalta oral oral [Active]; letrozole oral oral vg1 [Active]; - PMHx: 10:02 Migraines; Hypertension; High Cholesterol; ss 11:48 Breast Cancer; vg1 - Immunization history:: Adult Immunizations up to date. - Social history:: Smoking status: Patient denies any tobacco usage or history of. Screenin:48 Abuse screen: Denies threats or abuse. Nutritional screening: No deficits noted. vg1 Tuberculosis screening: No symptoms or risk factors identified. Fall Risk No fall in past 12 months (0 pts). No secondary diagnosis (0 pts). No IV (0 pts). Ambulatory Aid- None/Bed Rest/Nurse Assist (0 pts). Gait- Normal/Bed Rest/Wheelchair (0 pts) Mental Status- Oriented to own ability (0 pts). Total Nguyen Fall Scale indicates No Risk (0-24 pts). Assessment: 11:35 General: Appears in no apparent distress. uncomfortable, Behavior is calm, cooperative. vg1 Pain: Complains of pain in head Pain currently is 8 out of 10 on a pain scale. Pain began yesterday afternoon. Neuro: Level of Consciousness is awake, alert, obeys commands, Oriented to person, place, time, situation. Cardiovascular: Patient's skin is warm and dry. Respiratory: Airway is patent Respiratory effort is even, unlabored, Respiratory pattern is regular, symmetrical. GI: Reports nausea, vomiting. : No signs and/or symptoms were reported regarding the genitourinary system. EENT: No signs and/or symptoms were reported regarding the EENT system. Derm: Skin is intact, is healthy with good turgor. Musculoskeletal: Circulation, motion, and sensation intact. 13:13 Reassessment: Patient appears in no apparent distress at this time. Patient and/or vg1 family updated on plan of care and expected duration. Pain level reassessed. Patient is alert, oriented x 3, equal unlabored respirations, skin warm/dry/pink. Vital Signs: 10:01 Weight 113.4 kg; Height 5 ft. 8 in. (172.72 cm); ss 11:44 BP 125 / 96; Pulse 105; Resp 18; Pulse Ox 98% on R/A; vg1 12:00 BP 145 / 115; Pulse 105; Resp 18; Pulse Ox 99% on R/A; vg1 13:00 BP 120 / 92; Pulse 100; Resp 18; Pulse Ox 98% on R/A; vg1 14:00 BP 145 / 71; Pulse 105; Resp 18; Pulse Ox 98% on R/A; vg1 10:01 Body Mass Index 38.01 (113.40 kg, 172.72 cm) ED Course: 09:35 Patient arrived in ED. mr 10:01 Triage completed. ss 10:02 Arm band placed on right wrist. ss 11:19 Laila Santacruz, RN is Primary Nurse. ll1 11:35 Primary Nurse role handed off by Laila Santacruz RN vg1 11:35 Nathaly Gupta RN is Primary Nurse. vg1 11:48 Patient has correct armband on for positive identification. Bed in low position. Call vg1 light in reach. Side rails up X 1. 12:30 Juma Guzman PA is PHCP. jr8 12:30 Odilon Nicole MD is Attending Physician. jr8 12:42 Inserted saline lock: 20 gauge in right antecubital area, using aseptic technique. jp3 Patient maintains SpO2 saturation greater than 95% on room air. 12:43 Warm blanket given. Verbal reassurance given. Door closed. Noise minimized. Lights jp3 dimmed. Pulse ox on. NIBP on. 14:58 Nirmal Urban MD is Referral Physician. jr8 15:10 No provider procedures requiring assistance completed. IV discontinued, intact, vg1 bleeding controlled, No redness/swelling at site. Pressure dressing applied. Administered Medications: 13:00 Drug: Benadryl 25 mg Route: IVP; Site: right antecubital; vg1 13:00 Drug: TORadol - Ketorolac 15 mg Route: IVP; Site: right antecubital; vg1 13:00 Drug: Decadron - Dexamethasone 10 mg Route: IVP; Site: right antecubital; vg1 13:00 Drug: Ativan 0.5 mg Route: IVP; Site: right antecubital; vg1 14:21 Drug: Promethazine 12.5 mg Route: IVP; Site: right antecubital; vg1 14:21 Drug: Imitrex 6 mg Route: Sub-Q; Site: left upper arm; vg1 Outcome: 14:58 Discharge ordered by MD. jr8 15:10 Discharged to home ambulatory. vg1 15:10 Condition: good 15:10 Discharge instructions given to patient, Instructed on discharge instructions, follow up and referral plans. Demonstrated understanding of instructions, follow-up care. 15:17 Patient left the ED. vg1 Signatures: Anthony Divya vogt Ursula Andersen RN RN Juma Byrne PA PA jr8 Phil Medina jp3 Nathaly Gupta RN RN vg1 Laila Santacruz, JASON RN ll1 Corrections: (The following items were deleted from the chart) 19:30 19:30 No provider procedures requiring assistance completed. vg1 vg1 19:30 19:30 IV discontinued, intact, bleeding controlled, No redness/swelling at site. vg1 Pressure dressing applied, vg1
--- NOTE | 2020-07-17 14:58 | EDPHYS ---
Physician Documentation [facility] Name: Connie Ellsworth Age: 49 yrs Sex: Female : 1970 Arrival Date: 07/17/2020 Time: 09:35 Bed 26 Private MD: ED Physician Odilon Nicole HPI: 07/17 14:47 This 49 yrs old Female presents to ER via Ambulatory with complaints of jr8 Headache. 14:47 The patient complains of pain to the diffuse. The patient describes the headache as jr8 throbbing. Onset: The symptoms/episode began/occurred acutely, yesterday. Associated signs and symptoms: Pertinent positives: Photophobia. Severity of symptoms: At its worst the pain was moderate. Headache History: The patient has had previous headaches and this one is similar to previous episodes. The patient has experienced similar episodes in the past, several times. The patient has not recently seen a physician. Stated that her home meds were not working and headache would not resolve . Historical: - Allergies: 10:02 Trileptal; ss 10:02 Reglan; ss - Home Meds: 11:48 atorvastatin oral oral [Active]; Cymbalta oral oral [Active]; letrozole oral oral vg1 [Active]; - PMHx: 10:02 Migraines; Hypertension; High Cholesterol; ss 11:48 Breast Cancer; vg1 - Immunization history:: Adult Immunizations up to date. - Social history:: Smoking status: Patient denies any tobacco usage or history of. ROS: 14:47 Eyes: Negative for injury, pain, redness, and discharge, ENT: Negative for injury, jr8 pain, and discharge, Neck: Negative for injury, pain, and swelling, Cardiovascular: Negative for chest pain, palpitations, and edema, Respiratory: Negative for shortness of breath, cough, wheezing, and pleuritic chest pain, Abdomen/GI: Negative for abdominal pain, nausea, vomiting, diarrhea, and constipation, Back: Negative for injury and pain, MS/Extremity: Negative for injury and deformity, Skin: Negative for injury, rash, and discoloration. 14:47 Neuro: Positive for headache. Exam: 14:47 Eyes: Pupils equal round and reactive to light, extra-ocular motions intact. Lids and jr8 lashes normal. Conjunctiva and sclera are non-icteric and not injected. Cornea within normal limits. Periorbital areas with no swelling, redness, or edema. ENT: Nares patent. No nasal discharge, no septal abnormalities noted. Tympanic membranes are normal and external auditory canals are clear. Oropharynx with no redness, swelling, or masses, exudates, or evidence of obstruction, uvula midline. Mucous membranes moist. Neck: Trachea midline, no thyromegaly or masses palpated, and no cervical lymphadenopathy. Supple, full range of motion without nuchal rigidity, or vertebral point tenderness. No Meningismus. Cardiovascular: Regular rate and rhythm with a normal S1 and S2. No gallops, murmurs, or rubs. Normal PMI, no JVD. No pulse deficits. Respiratory: Lungs have equal breath sounds bilaterally, clear to auscultation and percussion. No rales, rhonchi or wheezes noted. No increased work of breathing, no retractions or nasal flaring. Abdomen/GI: Soft, non-tender, with normal bowel sounds. No distension or tympany. No guarding or rebound. No evidence of tenderness throughout. Back: No spinal tenderness. No costovertebral tenderness. Full range of motion. Skin: Warm, dry with normal turgor. Normal color with no rashes, no lesions, and no evidence of cellulitis. MS/ Extremity: Pulses equal, no cyanosis. Neurovascular intact. Full, normal range of motion. Neuro: Awake and alert, GCS 15, oriented to person, place, time, and situation. Cranial nerves II-XII grossly intact. Motor strength 5/5 in all extremities. Sensory grossly intact. Cerebellar exam normal. Normal gait. Vital Signs: 10:01 Weight 113.4 kg; Height 5 ft. 8 in. (172.72 cm); ss 11:44 BP 125 / 96; Pulse 105; Resp 18; Pulse Ox 98% on R/A; vg1 12:00 BP 145 / 115; Pulse 105; Resp 18; Pulse Ox 99% on R/A; vg1 13:00 BP 120 / 92; Pulse 100; Resp 18; Pulse Ox 98% on R/A; vg1 14:00 BP 145 / 71; Pulse 105; Resp 18; Pulse Ox 98% on R/A; vg1 10:01 Body Mass Index 38.01 (113.40 kg, 172.72 cm) ss MDM: 12:30 Patient medically screened. jr8 14:56 Data reviewed: vital signs, nurses notes, and as a result, I will discharge patient. jr8 Data interpreted: Pulse oximetry: on room air is 98 %. Interpretation: normal. Counseling: I had a detailed discussion with the patient and/or guardian regarding: the historical points, exam findings, and any diagnostic results supporting the discharge/admit diagnosis, the need for outpatient follow up, a neurologist, to return to the emergency department if symptoms worsen or persist or if there are any questions or concerns that arise at home. Response to treatment: the patient's symptoms have mildly improved after treatment, wants to go home and sleep. Will d/c home to f/u with Dr. Urban. Knows to come back if worse or new symptoms were to arise . 07/17 12:31 Order name: IV; Complete Time: 12:42 jr8 Administered Medications: 13:00 Drug: Benadryl 25 mg Route: IVP; Site: right antecubital; vg1 13:00 Drug: TORadol - Ketorolac 15 mg Route: IVP; Site: right antecubital; vg1 13:00 Drug: Decadron - Dexamethasone 10 mg Route: IVP; Site: right antecubital; vg1 13:00 Drug: Ativan 0.5 mg Route: IVP; Site: right antecubital; vg1 14:21 Drug: Promethazine 12.5 mg Route: IVP; Site: right antecubital; vg1 14:21 Drug: Imitrex 6 mg Route: Sub-Q; Site: left upper arm; vg1 Disposition: 15:24 Co-signature as Attending Physician, Odilon Nicole MD I agree with the assessment and tw4 plan of care. Disposition: 07/17/20 14:58 Discharged to Home. Impression: Migraine, unspecified, intractable. - Condition is Stable. - Discharge Instructions: Migraine Headache. - Medication Reconciliation Form, Thank You Letter, Antibiotic Education, Prescription Opioid Use form. - Follow up: Nirmal Urban MD; When: 2 - 3 days; Reason: Recheck today's complaints, Continuance of care, Re-evaluation by your physician. - Problem is new. - Symptoms have improved. Signatures: Ursula Andersen RN RN ss Juma Guzman PA PA jr8 Odilon Nicole MD MD tw4 Nathaly Gupta, RN RN vg1 Corrections: (The following items were deleted from the chart) 15:17 14:58 07/17/2020 14:58 Discharged to Home. Impression: Migraine, unspecified, vg1 intractable. Condition is Stable. Forms are Medication Reconciliation Form, Thank You Letter, Antibiotic Education, Prescription Opioid Use. Follow up: Nirmal Urban; When: 2 - 3 days; Reason: Recheck today's complaints, Continuance of care, Re-evaluation by your physician. Problem is new. Symptoms have improved. jr8
[2020-07-17 16:17] VITALS: O2SAT 98
[2020-07-17 16:18] VITALS: BP 145/71
== END 2020-07-17 15:17 | disposition home or self-care (01) ==
LOC: ER 09:30
DX: G43.919 Migraine, unspecified, intractable, without status migrainosus (principal); I10 Essential (primary) hypertension; E78.00 Pure hypercholesterolemia, unspecified; Z85.3 Personal history of malignant neoplasm of breast; Z88.8 Allergy status to other drugs, medicaments and biological substances
CPT/HCPCS: 96375; 96372; 96374; 99284; J3030; J2550; J1200; J1100